=== PATIENT | male | born 1940 | race Caucasian/White ===

== ENCOUNTER 2017-05-26 09:50 | Day surgery (SDC) | payer MEDICARE, BC ==
[2017-05-25 15:38] VITALS: BMI 33.3
--- NOTE | 2017-05-26 15:27 | RAD ---
CERVICAL SPINE RADIOGRAPHS: History: Cervical radiculopathy. FINDINGS: Lateral, flexion, and extension views cervical spine demonstrate mild anterolisthesis of C4 on C5. Th e anterolisthesis is minimally increased on the flexion view, increasing from approximately 1.4 mm to approximately 2.8 mm. There is significant disc space height loss with extensive anterior osteophyte s of the C5-6 level which is unchanged on flexion and extension views. IMPRESSION: Mild increasing anterolisthesis of C4 on C5 on flexion view. POS: FATIMAH
--- NOTE | 2017-05-26 15:43 | MRI ---
MRI CERVICAL SPINE: HISTORY: Cervical radiculopathy, M54.12. FINDINGS: Multiplanar, multisequence noncontrast-enhanced MRI images cervical spine obtained. Images demonstrate no evidence of spinal cord masses or lesions. C1-2: Unremarkable. C2-3: Unremarkable. C3-4: There is moderate bilateral C3-4 neural foraminal narrowing due to facet hypertrophic changes. The central canal is patent. C4-5: There is mild anterolisthesis of C4 and C5. There is a broad-based disk-osteophyte complex ce ntrally compressing the thecal sac resulting in mild central spinal stenosis. The right neural jennifer en is patent. The left demonstrates mild narrowing due to facet hypertrophic changes. C5-6: There is disk space height loss. Broad-based disk-osteophyte complex is seen centrally. Ther e is a left-sided moderate degree of C5-6 neural foraminal narrowing due to uncovertebral osteophyte hypertrophy. Mild right-sided neural foraminal narrowing is seen due to uncovertebral osteophyte hyp ertrophy. C6-7: There is a broad-based disk-osteophyte complex centrally resulting in mild central stenosis. Moderate to severe right C6-7 neural foraminal narrowing is seen due to uncovertebral osteophyte hype rtrophy. The left neural foramen is patent. C7-T1: Unremarkable. IMPRESSION: Midcervical including C3-4, C4-5, C5-6, and C6-7 multilevel disk-osteophyte complexes and neural fora barbara narrowing as described above. No significant evidence of cord compression is seen. POS: NANCY
== END 2017-05-26 15:34 | disposition home or self-care (01) ==
LOC: SDC/OP 09:50 → EDSTATUS 12:00 → SDC/OP 15:34
PROVIDERS: ATTEND Neurological Surgery
DX: M54.12 Radiculopathy, cervical region (principal); I25.10 Atherosclerotic heart disease of native coronary artery without angina pectoris; K21.9 Gastro-esophageal reflux disease without esophagitis; M19.90 Unspecified osteoarthritis, unspecified site; F32.9 Major depressive disorder, single episode, unspecified; D64.9 Anemia, unspecified; I25.2 Old myocardial infarction; I10 Essential (primary) hypertension; N40.0 Benign prostatic hyperplasia without lower urinary tract symptoms; G47.33 Obstructive sleep apnea (adult) (pediatric); E66.9 Obesity, unspecified; Z68.33 Body mass index [BMI] 33.0-33.9, adult; Z79.01 Long term (current) use of anticoagulants; Z79.51 Long term (current) use of inhaled steroids; Z79.899 Other long term (current) drug therapy; Z88.0 Allergy status to penicillin; Z88.7 Allergy status to serum and vaccine; Z98.1 Arthrodesis status; Z98.61 Coronary angioplasty status; Z95.1 Presence of aortocoronary bypass graft; Z90.49 Acquired absence of other specified parts of digestive tract; Z90.89 Acquired absence of other organs
CPT/HCPCS: 72040; 72141

== ENCOUNTER 2019-01-17 13:08 | Outpatient (CLI) | payer MEDICARE, BC ==
--- NOTE | 2019-01-17 15:28 | RAD ---
CERVICAL SPINE THREE VIEWS: INDICATIONS: Follow up surgery. COMPARISON: Prior exam dated 06/01/2017. FINDINGS: Since the comparison study, there has been interval performance of an ACDF, spanning C4 through C7. The prevertebral soft tissues demonstrate mild thickening, likely postoperative in nature. There is improved alignment of the cervical spine with less anterior translation of C4 on C5. Intervertebral cages are at C4-C5, C5-C6, and C6-C7. The lung apices are clear. IMPRESSION: 1. Interval anterior cervical diskectomy and fusion of C4, with improved cervical alignment at C4-C5 . Instrumentation projects in the expected position without gross evidence of complication. 2. Mild prevertebral soft tissue swelling is likely postoperative in nature. POS: CET
== END 2019-01-17 13:09 | disposition home or self-care (01) ==
LOC: TBSIIMAG 13:08
PROVIDERS: ATTEND Neurological Surgery
DX: M47.12 Other spondylosis with myelopathy, cervical region (principal); M47.22 Other spondylosis with radiculopathy, cervical region; M48.02 Spinal stenosis, cervical region; M79.89 Other specified soft tissue disorders; Z98.1 Arthrodesis status
CPT/HCPCS: 72040

== ENCOUNTER 2019-05-16 11:36 | Outpatient (CLI) | payer MEDICARE, BC ==
--- NOTE | 2019-05-16 12:36 | RAD ---
FOUR VIEWS LUMBAR SPINE: HISTORY: Chronic low back pain. Patient fell 9 months ago. Previous surgery in 2009. FINDINGS: Five lumbar-type vertebrae. There are bilateral transpedicular screws at L4 and L5 without perihardwa re lucency. There is no spondylolisthesis in the neutral position. No abnormal motion upon extension or flexion. Uncomplicated disc prosthesis at the L4-L5 level. Atherosclerosis of the aorta is noted. Revised bony pelvis and sacrum are intact. IMPRESSION: Uncomplicated lumbar fusion at L4-L5. Transcribed Date/Time: 05/16/2019 12:52 PM
== END 2019-05-16 11:37 | disposition home or self-care (01) ==
LOC: SCSRAD 11:36
PROVIDERS: ATTEND Neurological Surgery
DX: M54.16 Radiculopathy, lumbar region (principal); Z98.1 Arthrodesis status
CPT/HCPCS: 72110

== ENCOUNTER 2019-07-04 09:03 | Day surgery (SDC) | payer MEDICARE, BC ==
[2019-07-01 11:44] VITALS: BMI 30.7
[2019-07-04 11:10] LABS: Anion Gap 16 mmol/L (10-20); BUN (Urea Nitrogen) 8 mg/dL (8.4-25.7); Calc. Creatinine Clearance 92 mL/min (70-130); Calcium 8.7 mg/dL (7.8-10.44); Carbon Dioxide 28 mmol/L (23-31); Chloride 101 mmol/L (98-107); Estimated GFR-MDRD 79; Glucose 94 mg/dL (83-110); Potassium 4.5 mmol/L (3.5-5.1); Sodium 140 mmol/L (136-145)
[2019-07-04 11:29] LABS: #Eosinphils 0.2 thou/uL (0.0-0.7); #Lymphocytes 1.3 thou/uL (1.20-3.40); #Monocytes 0.4 thou/uL (0.11-0.59); #Neutrophils 1.8 thou/uL (1.40-6.50); %Basophils 1.1 % (0.0-1.0); %Eosinophils 5.6 % (0.0-10.0); %Lymphocytes 34.8 % (21.0-51.0); %Monocytes 10.6 % (0.0-10.0); %Neutrophils 47.9 % (42.0-75.0); Hemoglobin 12.9 g/dL (14.0-18.0); Mean Corpuscular HGB CONC 31.6 g/dL (32.0-36.0); Mean Corpuscular Hemoglobin 25.5 pg (27.0-31.0); Mean Corpuscular Volume 80.5 fL (78.0-98.0); Mean Platelet Volume 9.3 fL (7.4-10.4); Platelet Count 82 thou/uL (130-400); Platelet Morphology Comment Appears Decreased; RBC Distribution Width 20.6 % (11.5-14.5); RBC Morphology Normal; Red Blood Cell (RBC) Count 5.05 mill/uL (4.70-6.10); White Blood Cell (WBC) Count 3.8 thou/uL (4.8-10.8)
--- NOTE | 2019-07-04 14:46 | CT ---
CT lumbar spine with contrast: (CT lumbar myelogram) DATE: 07/04/2019 HISTORY: 78-year-old male with low back pain and lumbar radiculopathy. COMPARISON: Noncontrast CT 12/26/2013. MRI 05/25/2015. FINDINGS: 5 lumbar-type vertebrae. No significant spondylolisthesis and no spondylolysis. T12-L1: Essentially normal. L1-2: Interval development of mild broad, shallow depression of superior endplate of L2 since the neo or studies. Exact age unknown. No disc space narrowing. Calcification within the disc space again noted. Minimal disc bulge. No high-grade central or high-grade neural foraminal stenosis. Conus medul cr terminates at upper L2. L2-3: Disc space maintained. No central stenosis. No high-grade neural foraminal stenosis. L3-4: Disc space maintained. Diffuse disc bulge. Mild to moderate ligamentum flavum thickening. Mild bilateral facet DJD. Mild to moderate bilateral neural foraminal stenosis. Mild central spinal canal stenosis. Mild to moderate thecal sac stenosis. No significant interval change. L4-5: Moderately narrowed intervertebral disc space contains multiple metallic markers for interbody cage. No osseous bridges between the endplates across the disc space. Bilateral pedicle screws at L4 and L5, with no signs of hardware loosening and no malpositioning. Wide midline decompressive lami nectomy defect. Generous caliber of spinal canal and thecal sac. Ill-defined 1 cm somewhat faint filling defect at left anterior corner of thecal sac. Uncertain whether this represents artifact (bec ause it is only visualized on one image axial slice 70 of 114, series 2), extruded disc material, postsurgical scar, or hematoma. Moderate bilateral neural foraminal stenosis. L5-S1: Disc space maintained. Minimal disc bulge. No central stenosis. Mild bilateral neural foramina l stenosis. IMPRESSION: 1. Status post midline laminectomy and posterior lumbar interbody fusion, with bilateral pedicle scre ws, at L4-5. 2. No ankylosis between the endplates at L4-5. 3. Filling defect in the left anterior corner of the L4-5 spinal canal. Exact etiology uncertain. See above comments. 4. No high-grade central spinal canal stenosis or severe neural foraminal stenosis at any level.
--- NOTE | 2019-07-04 14:50 | CT ---
CT-guided lumbar myelogram: DATE: 07/04/2019 HISTORY: 78-year-old male with low back pain and lumbar radiculopathy. TECHNIQUE: Signed informed consent obtained prior to sedation. Procedure performed with anesthesiology service b ecause of extreme claustrophobia, according to the patient. Procedure performed under step CT guidance. Patient placed prone on CT table. Skin of low back prepped and draped in usual sterile fash ion. 25-gauge needle used to apply buffered lidocaine. 22-gauge spinal needle advanced from left paramedian sublaminar approach at L1-2 level (after review of prior MRI to ascertain that conus medul cr tip was at this level) incrementally into spinal canal and thecal sac. Clear CSF return. 11 mL Isovue [id number] injected intrathecally. Spinal needle removed. No complications. IMPRESSION: 1. Successful CT-guided lumbar myelogram. 2. See separate report of CT lumbar myelogram.
--- NOTE | 2019-07-04 17:09 | EKG ---
Test Reason : PREOP Blood Pressure : / mmHG Vent. Rate : 075 BPM Atrial Rate : 075 BPM P-R Int : 184 ms QRS Dur : 100 ms QT Int : 434 ms P-R-T Axes : 054 082 043 degrees QTc Int : 484 ms Normal sinus rhythm Prolonged QT Abnormal ECG When compared with ECG of 15-OCT-2013 12:52, Premature atrial complexes are no longer Present Confirmed by DR. Arash HUGO ([id number]) on 07/04/2019 5:08:54 PM Referred By: GENESIS Confirmed By:DR. Arash HUGO
== END 2019-07-04 14:00 | disposition home or self-care (01) ==
LOC: RAD 09:03
PROVIDERS: ATTEND Nurse Practitioner Family
PROC: B02B1ZZ Computerized Tomography (CT Scan) of Spinal Cord using Low Osmolar Contrast (ICD-10-PCS; principal; 2019-07-04)
DX: M47.26 Other spondylosis with radiculopathy, lumbar region (principal); G47.33 Obstructive sleep apnea (adult) (pediatric); E78.5 Hyperlipidemia, unspecified; I10 Essential (primary) hypertension; I25.2 Old myocardial infarction; I25.10 Atherosclerotic heart disease of native coronary artery without angina pectoris; K21.9 Gastro-esophageal reflux disease without esophagitis; Z87.891 Personal history of nicotine dependence; Z79.01 Long term (current) use of anticoagulants; Z79.899 Other long term (current) drug therapy; Z88.0 Allergy status to penicillin; Z88.7 Allergy status to serum and vaccine; Z95.1 Presence of aortocoronary bypass graft; Z98.1 Arthrodesis status
CPT/HCPCS: 36415; 72132; 77002; 80048; 85025; 93005; 93010

== ENCOUNTER 2020-03-22 07:40 | Outpatient (CLI) | payer MEDICARE, BC, OTHER ==
[2020-03-23 12:45] LABS: SARS-CoV-2 MS2 Positive; SARS-CoV-2 N Gene Negative; SARS-CoV-2 S Gene Negative; SARS-CoV-2 by NAA Not Detected (NotDetected); SARS-CoV-2 orf1ab Negative
== END 2020-03-22 07:41 | disposition home or self-care (01) ==
LOC: LABBT 07:40
PROVIDERS: ATTEND Specialist
DX: M96.1 Postlaminectomy syndrome, not elsewhere classified (principal); M54.16 Radiculopathy, lumbar region; G89.4 Chronic pain syndrome; Z20.828 Contact with and (suspected) exposure to other viral communicable diseases
CPT/HCPCS: 87635; U0003

== ENCOUNTER 2020-03-26 10:27 | Day surgery (SDC) | payer MEDICARE, BC ==
[2020-03-23 10:02] VITALS: BMI 29.2
[2020-03-26] MEDS ORDERED: Vancomycin 1 GM/200 ML BAG ONE (11:10)
[2020-03-26] MEDS ORDERED: Bupivacaine PF 0.5% 30 ML VIAL ONE (11:38)
[2020-03-26] MEDS ORDERED: Lidocaine 1% w/Epinephrine 1:100K 20 ML VIAL ONE (11:38)
[2020-03-26] MEDS ORDERED: Propofol 1,000 MG/100 ML VIAL IV ONE (11:55)
[2020-03-26] MEDS ORDERED: Fentanyl 100 MCG/2 ML VIAL ONE ×2 (11:55→14:50)
[2020-03-26] MEDS ORDERED: Rocuronium Bromide 10 MG/ML (10ML VIAL) ONE (12:19)
[2020-03-26] MEDS ORDERED: Lidocaine 1% PF 5 ML VIAL ONE (12:19)
[2020-03-26] MEDS ORDERED: PROPOFOL 200 MG/20 ML VIAL ONE (12:19)
[2020-03-26] MEDS ORDERED: SUGAMMADEX SODIUM 200 MG/2 ML VIAL ONE (14:14)
--- NOTE | 2020-03-26 15:09 | RAD ---
RADIOGRAPH THORACIC SPINE 1 VIEW: Date: 03/26/2020 HISTORY: 79-year-old male with chronic mid back pain. FINDINGS: Single small field of view frontal image demonstrates double dorsal column stimulator leads overlying the midline of the thoracic spine with distal tip of one of the leads at what is labeled at the T7-8 level and the other at the T8-9 level. IMPRESSION: Dorsal column spinal column stimulator leads in the lower to mid thoracic spine. POS: AH
[2020-03-26] MEDS ORDERED: HYDROcodone/Acetaminophen 5/325 mg Tablet ONE (15:57)
--- NOTE | 2020-03-26 19:00 | OP ---
DATE OF PROCEDURE: 03/26/2020 PREOPERATIVE DIAGNOSES: 1. Post-laminectomy syndrome. 2. Chronic pain syndrome. 3. Lumbar radiculopathy. POSTOPERATIVE DIAGNOSES: 1. Post-laminectomy syndrome. 2. Chronic pain syndrome. 3. Lumbar radiculopathy. PROCEDURES PERFORMED: 1. Spinal cord stimulator generator implant. 2. Spinal cord stimulator lead implant x2. These are 8-contact Medtronic leads x2. SPECIMENS REMOVED: None. ESTIMATED BLOOD LOSS: 5 mL. DESCRIPTION OF PROCEDURE: The patient was taken to the procedure room and placed under anesthesia. The patient was moved to a prone position on the Tu table. A time-out was performed. The back was prepped with DuraPrep, and sterile drapes were applied. Using fluoroscopy, we located the interspace of T12-L1. We anesthetized the skin and made a vertical incision and blunt dissected this down to fascia. We then inserted a 14-gauge supplied Touhy needle in a paramedian technique and engaged it in the interspinous ligament. We used loss of resistance to air to achieve access to the epidural space. Aspiration was negative for heme or CSF. We threaded the 8-contact Medtronic lead up the dorsal midline epidural space up to the bottom of T7. We then performed the exact same procedure on the right side, which is the contralateral side, achieving access at the same interspace and then threading the lead up to the bottom of T8 on the right side. Therefore, the midline lead is at the bottom of T7 and the right-sided lead is at the bottom of T8. The pictures of the trial were used as guidance and we placed the leads in the exact same position as the trial. Therefore, we felt confident that the patient would feel paresthesia in all pain areas. Given the patient's history of PTSD, we chose not to awaken the patient during the procedure to test the leads. The needles were removed, taking care not to move the leads. The stylet was removed from the leads. Anchors were placed over the leads and these were sutured down to the fascia with 2-0 silk sutures x2 each. We anesthetized the skin of the upper left buttock in a horizontal fashion. We used a 10 blade scalpel to make an incision and blunt dissected this down to Linda fascia. We then blunt dissected inferior and superior to create a pocket. We used a tunneling device to make a tunnel between the two pockets, and threaded the lead through the tunnel, brought it back to the battery pocket, connected it to a battery, torqued the leads down to attach them to the battery, and then tested impedances, which were all good. The battery was flipped inside the pocket with ease. The fascial layers were approximated using 2-0 Vicryl sutures in horizontal mattress and simple interrupted technique. We used a 3-0 Rapide Vicryl to approximate the skin layer and the subcuticular layer. Once this was approximated, we used Dermabond as an occlusive dressing. Once this was dry, we did use three Steri-Strips on the vertical anchor incision as there was more tension at this level. Sterile dressing was placed over this with Medipore tape. The patient was then taken to Day Stay under stable condition. Job ID: [id number]
== END 2020-03-26 16:30 | disposition home or self-care (01) ==
LOC: SDC 10:27
PROVIDERS: ATTEND Specialist
PROC: 0JH70DZ Insertion of Multiple Array Stimulator Generator into Back Subcutaneous Tissue and Fascia, Open Approach (ICD-10-PCS; principal; 2020-03-26)
PROC: 00HU3MZ Insertion of Neurostimulator Lead into Spinal Canal, Percutaneous Approach (ICD-10-PCS; 2020-03-26)
DX: M96.1 Postlaminectomy syndrome, not elsewhere classified (principal); G89.4 Chronic pain syndrome; M47.26 Other spondylosis with radiculopathy, lumbar region; M46.1 Sacroiliitis, not elsewhere classified; M47.817 Spondylosis without myelopathy or radiculopathy, lumbosacral region; F43.10 Post-traumatic stress disorder, unspecified; G47.33 Obstructive sleep apnea (adult) (pediatric); E78.5 Hyperlipidemia, unspecified; I25.2 Old myocardial infarction; I25.10 Atherosclerotic heart disease of native coronary artery without angina pectoris; K21.9 Gastro-esophageal reflux disease without esophagitis; M19.90 Unspecified osteoarthritis, unspecified site; F41.9 Anxiety disorder, unspecified; I11.0 Hypertensive heart disease with heart failure; I50.9 Heart failure, unspecified; I48.91 Unspecified atrial fibrillation; Z87.891 Personal history of nicotine dependence; Z79.01 Long term (current) use of anticoagulants; Z79.891 Long term (current) use of opiate analgesic; Z79.899 Other long term (current) drug therapy; Z88.0 Allergy status to penicillin; Z88.7 Allergy status to serum and vaccine; Z95.1 Presence of aortocoronary bypass graft; Z98.1 Arthrodesis status
CPT/HCPCS: 72020; 76000; C1778; C1787; J2704; J3010; J3370; L8679; L8689; S0020

== ENCOUNTER 2021-02-18 11:52 | Outpatient (CLI) | payer MEDICARE, BC ==
[2021-02-19 07:59] LABS: SARS-CoV-2 PCR by NAA Not Detected (NotDetected)
== END 2021-02-18 11:53 | disposition home or self-care (01) ==
LOC: LABBT 11:52
PROVIDERS: ATTEND Neurological Surgery
DX: Z01.812 Encounter for preprocedural laboratory examination (principal); M54.16 Radiculopathy, lumbar region; Z20.822 Contact with and (suspected) exposure to COVID-19
CPT/HCPCS: U0003; U0005

== ENCOUNTER 2021-02-22 08:56 | Day surgery (SDC) | payer MEDICARE, BC ==
[2021-02-21 10:45] VITALS: BMI 32.1
[2021-02-22] MEDS ORDERED: Iopamidol-M 200 41% 20 ML VIAL ONE (10:35)
[2021-02-22] MEDS ORDERED: Fentanyl 100 MCG/2 ML VIAL ONE (10:51)
[2021-02-22] MEDS ORDERED: Phenylephrine 10 MG/ML VIAL ONE (10:51)
[2021-02-22] MEDS ORDERED: Famotidine/PF 20 mg/2ml Vial ONE (10:51)
[2021-02-22] MEDS ORDERED: Ketamine 50 MG/ML (10ML VIAL) ONE (11:02)
[2021-02-22] MEDS ORDERED: Midazolam HCl 2 mg/2 ml Vial ONE (11:02)
== END 2021-02-22 13:25 | disposition home or self-care (01) ==
LOC: RAD 08:56 → SDC/OP 13:25
PROVIDERS: ATTEND Neurological Surgery
PROC: B02B1ZZ Computerized Tomography (CT Scan) of Spinal Cord using Low Osmolar Contrast (ICD-10-PCS; principal; 2021-02-22)
PROC: 00JU3ZZ Inspection of Spinal Canal, Percutaneous Approach (ICD-10-PCS; 2021-02-22)
DX: M54.16 Radiculopathy, lumbar region (principal); M46.1 Sacroiliitis, not elsewhere classified; M76.31 Iliotibial band syndrome, right leg; M70.61 Trochanteric bursitis, right hip; J44.9 Chronic obstructive pulmonary disease, unspecified; I11.0 Hypertensive heart disease with heart failure; I50.9 Heart failure, unspecified; G47.30 Sleep apnea, unspecified; I48.91 Unspecified atrial fibrillation; K21.9 Gastro-esophageal reflux disease without esophagitis; Z79.01 Long term (current) use of anticoagulants; Z79.899 Other long term (current) drug therapy; Z87.891 Personal history of nicotine dependence; Z88.0 Allergy status to penicillin; Z95.1 Presence of aortocoronary bypass graft; Z98.1 Arthrodesis status
CPT/HCPCS: 62304; 72132; J2250; J2370; J3010; Q9966; S0028

== ENCOUNTER 2021-02-26 14:27 | Outpatient (CLI) | payer MEDICARE, BC ==
[2021-02-26 17:02] LABS: Mean Corpuscular HGB CONC 29.1 g/dL (32.0-36.0); Mean Corpuscular Volume 72.2 fl (81.2-95.1); Mean Platelet Volume 9.6 fl (7.4-10.4); Platelet Count 274 10x3/uL (150-450); RBC Distribution Width 17.3 % (11.5-14.5); Red Blood Cell (RBC) Count 5.72 10x6/uL (4.32-5.72); White Blood Cell (WBC) Count 18.3 10x3/uL (3.5-10.5)
[2021-02-26 17:17] LABS: Prothrombin Time 10.8 sec (9.5-12.1)
[2021-02-26 17:31] LABS: Anion Gap 18 mmol/L (10-20); BUN (Urea Nitrogen) 31 mg/dL (8.4-25.7); Calc. Creatinine Clearance 0 mL/min (70-130); Calcium 10.2 mg/dL (7.8-10.44); Carbon Dioxide 21 mmol/L (23-31); Chloride 103 mmol/L (98-107); Glucose 123 mg/dL (83-110); Potassium 4.4 mmol/L (3.5-5.1); Sodium 138 mmol/L (136-145)
[2021-02-27 07:49] LABS: SARS-CoV-2 PCR by NAA Not Detected (NotDetected)
== END 2021-02-26 14:28 | disposition home or self-care (01) ==
LOC: LABBT 14:27
PROVIDERS: ATTEND Internal Medicine Cardiovascular Disease
DX: Z01.812 Encounter for preprocedural laboratory examination (principal); Z20.822 Contact with and (suspected) exposure to COVID-19
CPT/HCPCS: 80048; 85027; 85610; U0003; U0005

== ENCOUNTER 2021-03-01 05:58 | Day surgery (SDC) | payer MEDICARE, BC ==
[2021-02-28 12:39] VITALS: BMI 33.5
[2021-03-01] MEDS ORDERED: PROPOFOL 20 ML ONE (07:02)
[2021-03-01] MEDS ORDERED: Midazolam HCl 2 mg/2 ml Vial ONE (07:02)
== END 2021-03-01 08:32 | disposition home or self-care (01) ==
LOC: CCL 05:58
PROVIDERS: ATTEND Internal Medicine Cardiovascular Disease
PROC: B246ZZ4 Ultrasonography of Right and Left Heart, Transesophageal (ICD-10-PCS; principal; 2021-03-01)
PROC: B24CZZ4 Ultrasonography of Pericardium, Transesophageal (ICD-10-PCS; 2021-03-01)
PROC: 5A2204Z Restoration of Cardiac Rhythm, Single (ICD-10-PCS; 2021-03-01)
DX: I48.19 Other persistent atrial fibrillation (principal); I48.4 Atypical atrial flutter; G47.33 Obstructive sleep apnea (adult) (pediatric); I25.10 Atherosclerotic heart disease of native coronary artery without angina pectoris; I25.2 Old myocardial infarction; E78.5 Hyperlipidemia, unspecified; I10 Essential (primary) hypertension; K21.9 Gastro-esophageal reflux disease without esophagitis; N40.0 Benign prostatic hyperplasia without lower urinary tract symptoms; J44.9 Chronic obstructive pulmonary disease, unspecified; E03.9 Hypothyroidism, unspecified; G43.709 Chronic migraine without aura, not intractable, without status migrainosus; I73.9 Peripheral vascular disease, unspecified; Z87.891 Personal history of nicotine dependence; Z79.01 Long term (current) use of anticoagulants; Z79.899 Other long term (current) drug therapy; Z95.1 Presence of aortocoronary bypass graft; Z98.1 Arthrodesis status
CPT/HCPCS: 92960; 93005; 93010; 93312; J2250; J2704

== ENCOUNTER 2021-07-16 10:41 | Outpatient (CLI) | payer MEDICARE, BC ==
[2021-07-16 12:38] LABS: Mean Corpuscular HGB CONC 28.8 g/dL (32.0-36.0); Mean Corpuscular Hemoglobin 19.8 pg (27.0-33.0); Mean Corpuscular Volume 68.8 fl (81.2-95.1); Mean Platelet Volume 8.9 fl (7.4-10.4); Platelet Count 244 10x3/uL (150-450); Red Blood Cell (RBC) Count 5.55 10x6/uL (4.32-5.72); White Blood Cell (WBC) Count 6.9 10x3/uL (3.5-10.5)
[2021-07-16 12:57] LABS: Anion Gap 16 mmol/L (10-20); BUN (Urea Nitrogen) 19 mg/dL (8.4-25.7); Calc. Creatinine Clearance 0 mL/min (70-130); Calcium 9.1 mg/dL (7.8-10.44); Carbon Dioxide 21 mmol/L (23-31); Chloride 104 mmol/L (98-107); Glucose 123 mg/dL (83-110); Potassium 4.9 mmol/L (3.5-5.1); Prothrombin Time 11.4 sec (9.5-12.1); Sodium 136 mmol/L (136-145)
[2021-07-16 22:54] LABS: SARS-CoV-2 PCR by NAA Not Detected (NotDetected)
== END 2021-07-16 10:42 | disposition home or self-care (01) ==
LOC: LABBT 10:41
PROVIDERS: ATTEND Internal Medicine Cardiovascular Disease
DX: Z01.812 Encounter for preprocedural laboratory examination (principal); Z20.822 Contact with and (suspected) exposure to COVID-19
CPT/HCPCS: 80048; 85027; 85610; U0003; U0005

== ENCOUNTER 2021-07-19 08:23 | Day surgery (SDC) | payer MEDICARE, BC ==
[2021-07-17 12:11] VITALS: BMI 32.1
[2021-07-19] MEDS ORDERED: PROPOFOL 200 MG/20 ML VIAL ONE (11:30)
[2021-07-19] MEDS ORDERED: Lidocaine 1% PF 5 ML VIAL ONE (11:30)
== END 2021-07-19 13:36 | disposition home or self-care (01) ==
LOC: CCL 08:23
PROVIDERS: ATTEND Internal Medicine Cardiovascular Disease
PROC: 5A2204Z Restoration of Cardiac Rhythm, Single (ICD-10-PCS; principal; 2021-07-19)
DX: I48.19 Other persistent atrial fibrillation (principal); I48.3 Typical atrial flutter; I48.4 Atypical atrial flutter; G47.33 Obstructive sleep apnea (adult) (pediatric); I25.10 Atherosclerotic heart disease of native coronary artery without angina pectoris; I25.2 Old myocardial infarction; I10 Essential (primary) hypertension; J44.9 Chronic obstructive pulmonary disease, unspecified; K21.9 Gastro-esophageal reflux disease without esophagitis; E03.9 Hypothyroidism, unspecified; G43.909 Migraine, unspecified, not intractable, without status migrainosus; N40.0 Benign prostatic hyperplasia without lower urinary tract symptoms; E78.5 Hyperlipidemia, unspecified; Z79.01 Long term (current) use of anticoagulants; Z79.890 Hormone replacement therapy; Z79.899 Other long term (current) drug therapy; Z88.0 Allergy status to penicillin; Z95.1 Presence of aortocoronary bypass graft; D50.9 Iron deficiency anemia, unspecified; Z87.891 Personal history of nicotine dependence
CPT/HCPCS: 92960; 93005; 93010; J2704

== ENCOUNTER 2021-08-21 09:31 | Outpatient (CLI) | payer MEDICARE, BC | END 2021-08-21 09:32 | disposition home or self-care (01) | LOC: BICRAD 09:31 | PROVIDERS: ATTEND Nurse Practitioner Family | DX: M25.551 Pain in right hip (principal); M47.818 Spondylosis without myelopathy or radiculopathy, sacral and sacrococcygeal region; M16.11 Unilateral primary osteoarthritis, right hip | CPT/HCPCS: 72170 ==

== ENCOUNTER 2022-01-08 12:06 | Outpatient (CLI) | payer MEDICARE, BC ==
[2022-01-08 13:54] LABS: Hemoglobin 8.4 g/dL (13.5-17.5); Mean Corpuscular HGB CONC 28.3 g/dL (32.0-36.0); Mean Corpuscular Hemoglobin 20.2 pg (27.0-33.0); Mean Corpuscular Volume 71.6 fl (81.2-95.1); Platelet Count 434 10x3/uL (150-450); Red Blood Cell (RBC) Count 4.15 10x6/uL (4.32-5.72); White Blood Cell (WBC) Count 5.4 10x3/uL (3.5-10.5)
[2022-01-08 14:13] LABS: Anion Gap 20 mmol/L (10-20); BUN (Urea Nitrogen) 22 mg/dL (8.4-25.7); Calc. Creatinine Clearance 0 mL/min (70-130); Calcium 9.1 mg/dL (7.8-10.44); Carbon Dioxide 22 mmol/L (23-31); Chloride 100 mmol/L (98-107); Estimated GFR 50; Glucose 119 mg/dL (83-110); Potassium 4.2 mmol/L (3.5-5.1); Sodium 138 mmol/L (136-145)
== END 2022-01-08 12:07 | disposition home or self-care (01) ==
LOC: LABBT 12:06
PROVIDERS: ATTEND Internal Medicine Cardiovascular Disease
DX: Z01.818 Encounter for other preprocedural examination (principal); Z20.822 Contact with and (suspected) exposure to COVID-19
CPT/HCPCS: 80048; 85027; 87811; 93005; 93010

== ENCOUNTER 2022-01-15 08:37 | Outpatient (CLI) | payer MEDICARE, BC ==
[2022-01-15 09:39] LABS: Hemoglobin 8.7 g/dL (13.5-17.5); Mean Corpuscular HGB CONC 28.2 g/dL (32.0-36.0); Mean Corpuscular Hemoglobin 20.3 pg (27.0-33.0); Mean Corpuscular Volume 72.2 fl (81.2-95.1); Platelet Count 307 10x3/uL (150-450); RBC Distribution Width 20.9 % (11.5-14.5); Red Blood Cell (RBC) Count 4.28 10x6/uL (4.32-5.72); White Blood Cell (WBC) Count 5.1 10x3/uL (3.5-10.5)
[2022-01-15 09:47] LABS: Anion Gap 15 mmol/L (10-20); BUN (Urea Nitrogen) 13 mg/dL (8.4-25.7); Calc. Creatinine Clearance 0 mL/min (70-130); Carbon Dioxide 26 mmol/L (23-31); Chloride 101 mmol/L (98-107); Estimated GFR 53; Glucose 147 mg/dL (83-110); Potassium 3.8 mmol/L (3.5-5.1); Sodium 138 mmol/L (136-145)
== END 2022-01-15 08:38 | disposition home or self-care (01) ==
LOC: LABBT 08:37
PROVIDERS: ATTEND Nurse Anesthetist, Certified Registered
DX: Z01.812 Encounter for preprocedural laboratory examination (principal); Z20.822 Contact with and (suspected) exposure to COVID-19
CPT/HCPCS: 80048; 85027; 87811

== ENCOUNTER 2022-01-17 06:03 | Day surgery (SDC) | payer MEDICARE, BC ==
[2022-01-15 10:36] VITALS: BMI 30.7
[2022-01-17] MEDS ORDERED: Propofol 1,000 MG/100 ML VIAL IV ONE (06:50)
[2022-01-17] MEDS ORDERED: fentaNYL Citrate/PF 100 MCG/2 ML SYRINGE ONE (06:50)
[2022-01-17] MEDS ORDERED: Lidocaine 1% w/Epinephrine 1:100K 20 ML VIAL ONE (07:13)
[2022-01-17] MEDS ORDERED: Bupivacaine PF 0.5% 30 ML VIAL ONE (07:13)
[2022-01-17] MEDS ORDERED: Midazolam HCl 2 mg/2 ml Vial ONE (07:50)
[2022-01-17] MEDS ORDERED: Lidocaine 1% PF 5 ML VIAL ONE (08:00)
[2022-01-17] MEDS ORDERED: PROPOFOL 200 MG/20 ML VIAL ONE (08:00)
[2022-01-17] MEDS ORDERED: Diazepam 10 MG/2 ML SYRINGE IVP SCH (09:30)
[2022-01-17] MEDS ORDERED: HYDROcodone/Acetaminophen 5/325 mg Tablet ONE (09:59)
== END 2022-01-17 10:42 | disposition home or self-care (01) ==
LOC: SDC 06:03
PROVIDERS: ATTEND Specialist
PROC: 0JH70BZ Insertion of Single Array Stimulator Generator into Back Subcutaneous Tissue and Fascia, Open Approach (ICD-10-PCS; principal; 2022-01-17)
PROC: 00HU3MZ Insertion of Neurostimulator Lead into Spinal Canal, Percutaneous Approach (ICD-10-PCS; 2022-01-17)
DX: G89.4 Chronic pain syndrome (principal); M96.1 Postlaminectomy syndrome, not elsewhere classified; R78.81 Bacteremia; M46.1 Sacroiliitis, not elsewhere classified; M54.16 Radiculopathy, lumbar region; M76.31 Iliotibial band syndrome, right leg; M70.61 Trochanteric bursitis, right hip; I11.0 Hypertensive heart disease with heart failure; I50.9 Heart failure, unspecified; J44.9 Chronic obstructive pulmonary disease, unspecified; I48.91 Unspecified atrial fibrillation; I10 Essential (primary) hypertension; Z79.01 Long term (current) use of anticoagulants; Z79.890 Hormone replacement therapy; Z79.899 Other long term (current) drug therapy; Z88.0 Allergy status to penicillin; Z87.891 Personal history of nicotine dependence; Z95.1 Presence of aortocoronary bypass graft
CPT/HCPCS: J2250; J2704; J3360; S0020

== ENCOUNTER 2022-02-06 10:04 | Outpatient (CLI) | payer MEDICARE, BC | END 2022-02-06 10:05 | disposition home or self-care (01) | LOC: LABBT 10:04 | PROVIDERS: ATTEND Internal Medicine Cardiovascular Disease | DX: Z53.9 Procedure and treatment not carried out, unspecified reason (principal) | CPT/HCPCS: 80048; 85027; 85610; 86850; 86900; 86901; 87811 ==

== ENCOUNTER 2022-02-11 08:28 | Day surgery (SDC) | payer MEDICARE, BC ==
[2022-02-06 11:03] LABS: Hemoglobin 8.5 g/dL (13.5-17.5); Mean Corpuscular HGB CONC 28.9 g/dL (32.0-36.0); Mean Corpuscular Hemoglobin 20.3 pg (27.0-33.0); Mean Corpuscular Volume 70.3 fl (81.2-95.1); Mean Platelet Volume 8.8 fl (7.4-10.4); Platelet Count 313 10x3/uL (150-450); RBC Distribution Width 19.6 % (11.5-14.5); Red Blood Cell (RBC) Count 4.18 10x6/uL (4.32-5.72); White Blood Cell (WBC) Count 11.4 10x3/uL (3.5-10.5)
[2022-02-06 11:18] LABS: Prothrombin Time 11.1 sec (9.5-12.1)
[2022-02-06 11:33] LABS: Anion Gap 16 mmol/L (10-20); BUN (Urea Nitrogen) 29 mg/dL (8.4-25.7); Calc. Creatinine Clearance 0 mL/min (70-130); Calcium 9.3 mg/dL (7.8-10.44); Carbon Dioxide 26 mmol/L (23-31); Chloride 99 mmol/L (98-107); Estimated GFR 61; Glucose 100 mg/dL (83-110); Potassium 3.5 mmol/L (3.5-5.1); Sodium 137 mmol/L (136-145)
[2022-02-10 09:28] VITALS: BMI 30.7
[2022-02-11] MEDS ORDERED: Vancomycin (BATCH) 1.5 GRAM/300 ML BAG ONE (08:55)
== END 2022-02-11 11:10 | disposition home or self-care (01) ==
LOC: SDC 08:28
PROVIDERS: ATTEND Internal Medicine Cardiovascular Disease
DX: I11.0 Hypertensive heart disease with heart failure (principal); I50.22 Chronic systolic (congestive) heart failure; I48.21 Permanent atrial fibrillation; I48.3 Typical atrial flutter; I48.4 Atypical atrial flutter; G47.33 Obstructive sleep apnea (adult) (pediatric); E78.5 Hyperlipidemia, unspecified; I25.2 Old myocardial infarction; I25.10 Atherosclerotic heart disease of native coronary artery without angina pectoris; K21.9 Gastro-esophageal reflux disease without esophagitis; J44.9 Chronic obstructive pulmonary disease, unspecified; E03.9 Hypothyroidism, unspecified; G43.709 Chronic migraine without aura, not intractable, without status migrainosus; I42.8 Other cardiomyopathies; I25.5 Ischemic cardiomyopathy; Z53.8 Procedure and treatment not carried out for other reasons; Z87.891 Personal history of nicotine dependence; Z79.01 Long term (current) use of anticoagulants; Z79.890 Hormone replacement therapy; Z79.899 Other long term (current) drug therapy; Z88.0 Allergy status to penicillin; Z95.1 Presence of aortocoronary bypass graft; Z20.822 Contact with and (suspected) exposure to COVID-19
CPT/HCPCS: 80048; 85027; 85610; 86850; 86900; 86901; 87811; J3370

== ENCOUNTER 2022-02-12 14:41 | Outpatient (CLI) | payer MEDICARE, BC ==
[2022-02-12 16:05] LABS: INR-International Normal Ratio 1.1; Prothrombin Time 11.6 sec (9.5-12.1)
[2022-02-12 16:09] LABS: Anion Gap 17 mmol/L (10-20); BUN (Urea Nitrogen) 28 mg/dL (8.4-25.7); Calc. Creatinine Clearance 0 mL/min (70-130); Calcium 8.8 mg/dL (7.8-10.44); Carbon Dioxide 28 mmol/L (23-31); Chloride 96 mmol/L (98-107); Estimated GFR 58; Glucose 134 mg/dL (83-110); Potassium 3.6 mmol/L (3.5-5.1); Sodium 137 mmol/L (136-145)
[2022-02-12 16:21] LABS: Hemoglobin 8.7 g/dL (13.5-17.5); Mean Corpuscular HGB CONC 28.5 g/dL (32.0-36.0); Mean Corpuscular Hemoglobin 19.9 pg (27.0-33.0); Mean Corpuscular Volume 69.8 fl (81.2-95.1); Mean Platelet Volume 9.6 fl (7.4-10.4); Platelet Count 232 10x3/uL (150-450); RBC Distribution Width 19.6 % (11.5-14.5); Red Blood Cell (RBC) Count 4.37 10x6/uL (4.32-5.72); White Blood Cell (WBC) Count 11.1 10x3/uL (3.5-10.5)
== END 2022-02-12 14:42 | disposition home or self-care (01) ==
LOC: LABBT 14:41
PROVIDERS: ATTEND Internal Medicine Cardiovascular Disease
DX: Z01.812 Encounter for preprocedural laboratory examination (principal); I50.9 Heart failure, unspecified; I44.2 Atrioventricular block, complete; Z20.822 Contact with and (suspected) exposure to COVID-19
CPT/HCPCS: 80048; 85027; 85610; 86850; 86900; 86901; 87811

== ENCOUNTER 2022-02-13 08:15 | Observation (INO) | payer MEDICARE, BC ==
[2022-02-13] MEDS ORDERED: Vancomycin (BATCH) 1.5 GRAM/300 ML BAG ONE (08:18)
[2022-02-13] MEDS ORDERED: Midazolam HCl 2 mg/2 ml Vial ONE (10:08)
[2022-02-13] MEDS ORDERED: Lidocaine 1% PF 5 ML VIAL ONE ×2 (10:32→12:02)
[2022-02-13] MEDS ORDERED: Clindamycin/D5W 900 mg/50 ml Premix Bag ONE (10:32)
[2022-02-13] MEDS ORDERED: Gentamicin 80 MG/2 ML VIAL ONE (11:06)
[2022-02-13] MEDS ORDERED: Gentamicin 80 MG/100 ML BAG ONE ×2 (11:07→13:41)
[2022-02-13] MEDS ORDERED: Ondansetron PF 4 MG/2 ML Vial ONE ×2 (11:30→12:10)
[2022-02-13] MEDS ORDERED: Phenylephrine 10 MG/ML VIAL ONE ×2 (11:30→12:13)
[2022-02-13] MEDS ORDERED: ePHEDrine 50 MG/ML VIAL ONE (11:30)
[2022-02-13] MEDS ORDERED: Dexamethasone 20 MG/5 ML VIAL ONE (11:30)
[2022-02-13] MEDS ORDERED: PROPOFOL 200 MG/20 ML VIAL ONE (11:30)
[2022-02-13] MEDS ORDERED: Fentanyl 100 MCG/2 ML VIAL ONE (11:55)
[2022-02-13] MEDS ORDERED: PROPOFOL 20 ML ONE (12:03)
[2022-02-13] MEDS ORDERED: Dexamethasone 4 mg/ml Vial ONE (12:10)
[2022-02-13] MEDS ORDERED: Iopamidol 370 76% 50 ML VIAL FS ONE (13:57)
[2022-02-13] MEDS ORDERED: Gentamicin 80 MG/50 ML BAG ONE (14:00)
[2022-02-13] MEDS ORDERED: Acetaminophen/Codeine 30-300mg Tablet PO PRN (14:24)
[2022-02-13] MEDS ORDERED: Albuterol Sulfate 1.25 MG/3 ML NEB INH PRN (14:25)
[2022-02-13] MEDS ORDERED: HYDROcodone/Acetaminophen 10/325 mg Tablet PO PRN (14:37)
[2022-02-13] MEDS ORDERED: hydrOXYzine 25 MG TAB PO PRN (14:38)
[2022-02-13] MEDS ORDERED: Acetaminophen 500 MG TAB PO PRN (14:48)
[2022-02-13] MEDS ORDERED: fentaNYL Citrate/PF 100 MCG/2 ML SYRINGE ONE (16:26)
[2022-02-13 18:43] VITALS: BMI 33.7
[2022-02-13] MEDS ORDERED: Non-Formulary Medication 1 EACH PO PRN (18:48)
[2022-02-13] MEDS ORDERED: Ondansetron HCl/PF 4 MG/2 ML Vial IVP PRN (19:00)
[2022-02-13] MEDS ORDERED: Promethazine HCl 25 MG/ML VIAL IM/IV PRN (19:00)
[2022-02-13] MEDS: Mometasone 200 MCG/Formoterol 5 MCG 120 PUFF INHALER INH SCH (20:04)
[2022-02-13] MEDS ORDERED: Carvedilol 3.125 MG TAB PO SCH (21:00)
[2022-02-13] MEDS ORDERED: Mirtazapine 15 MG TAB PO SCH (21:00)
[2022-02-14] MEDS ORDERED: LEVOTHYROXINE 137 MCG TAB PO SCH (06:00)
[2022-02-14] MEDS ORDERED: Levothyroxine Sodium 25 MCG TAB PO SCH (06:00)
[2022-02-14] MEDS ORDERED: Levothyroxine Sodium 112 MCG TAB PO SCH (06:00)
[2022-02-14] MEDS: Mometasone 200 MCG/Formoterol 5 MCG 120 PUFF INHALER INH SCH (06:47)
[2022-02-14] MEDS ORDERED: DAPTOmycin 500 MG in Sodium Chloride 0.9% 100 ML IVPB SCH (07:00)
[2022-02-14] MEDS ORDERED: Ferrous Sulfate 325 MG TAB PO SCH (08:00)
[2022-02-14] MEDS ORDERED: Metolazone 2.5 MG TAB PO SCH (08:30)
[2022-02-14 08:47] VITALS: BP 145/66; TEMP 97.9
[2022-02-14] MEDS ORDERED: Cyanocobalamin (Vitamin B-12) 1,000 MCG TAB PO SCH (09:00)
[2022-02-14] MEDS ORDERED: Furosemide 40 MG TAB PO SCH (09:00)
[2022-02-14] MEDS ORDERED: Magnesium Oxide 400 MG TAB PO SCH (09:00)
[2022-02-14] MEDS ORDERED: Venlafaxine HCl XR 150 MG CAP PO SCH (09:00)
[2022-02-14] MEDS ORDERED: Thiamine 100 MG TAB PO SCH (09:00)
[2022-02-14] MEDS ORDERED: Finasteride 5 MG TAB PO SCH (09:00)
[2022-02-14] MEDS ORDERED: Tamsulosin HCl 0.4 MG CAP PO SCH (09:00)
[2022-02-14] MEDS ORDERED: Folic Acid 1 MG TAB PO SCH (09:00)
== END 2022-02-14 09:50 | disposition home or self-care (01) ==
LOC: SDC 08:15 → 2SW 11:18
PROVIDERS: ADMIT Internal Medicine Cardiovascular Disease; ATTEND Internal Medicine Cardiovascular Disease
PROC: 0JPT0PZ Removal of Cardiac Rhythm Related Device from Trunk Subcutaneous Tissue and Fascia, Open Approach (ICD-10-PCS; principal; 2022-02-13)
PROC: 0JH609Z Insertion of Cardiac Resynchronization Defibrillator Pulse Generator into Chest Subcutaneous Tissue and Fascia, Open Approach (ICD-10-PCS; 2022-02-13)
PROC: 02PA3MZ Removal of Cardiac Lead from Heart, Percutaneous Approach (ICD-10-PCS; 2022-02-13)
PROC: 02HL3KZ Insertion of Defibrillator Lead into Left Ventricle, Percutaneous Approach (ICD-10-PCS; 2022-02-13)
PROC: 02HK3KZ Insertion of Defibrillator Lead into Right Ventricle, Percutaneous Approach (ICD-10-PCS; 2022-02-13)
PROC: 3E0132A Introduction of Anti-Infective Envelope into Subcutaneous Tissue, Percutaneous Approach (ICD-10-PCS; 2022-02-13)
DX: I11.0 Hypertensive heart disease with heart failure (principal); I50.22 Chronic systolic (congestive) heart failure; I48.21 Permanent atrial fibrillation; I44.2 Atrioventricular block, complete; A41.9 Sepsis, unspecified organism; K02.9 Dental caries, unspecified; D50.9 Iron deficiency anemia, unspecified; G47.33 Obstructive sleep apnea (adult) (pediatric); E78.5 Hyperlipidemia, unspecified; I25.2 Old myocardial infarction; I25.10 Atherosclerotic heart disease of native coronary artery without angina pectoris; K21.9 Gastro-esophageal reflux disease without esophagitis; N40.0 Benign prostatic hyperplasia without lower urinary tract symptoms; M19.90 Unspecified osteoarthritis, unspecified site; G89.29 Other chronic pain; M54.9 Dorsalgia, unspecified; I48.3 Typical atrial flutter; I48.4 Atypical atrial flutter; J44.9 Chronic obstructive pulmonary disease, unspecified; E03.9 Hypothyroidism, unspecified; Z87.891 Personal history of nicotine dependence; Z79.01 Long term (current) use of anticoagulants; Z79.2 Long term (current) use of antibiotics; Z79.890 Hormone replacement therapy; Z79.899 Other long term (current) drug therapy; Z88.0 Allergy status to penicillin; Z95.1 Presence of aortocoronary bypass graft; Z98.1 Arthrodesis status
CPT/HCPCS: 33207; 33225; 33233; 33235; 71045; 93005; 94640 ×2; C1769; C1894; C1898; C1900; C2621; J3370; J1100; J1580; J2250; J2370; J2405; J2704; J3010; J3490; Q9967

== ENCOUNTER 2022-04-22 14:53 | Emergency (ER) | payer MEDICARE, BC ==
[2022-04-22] MEDS ORDERED: HYDROcodone/Acetaminophen 5/325 mg Tablet ONE (15:44)
[2022-04-22] MEDS ORDERED: Ketorolac Tromethamine 30 MG/ML VIAL ONE (15:44)
== END 2022-04-22 17:20 | disposition home or self-care (01) ==
LOC: ERS 14:53
DX: M54.42 Lumbago with sciatica, left side (principal); M54.41 Lumbago with sciatica, right side; G89.29 Other chronic pain; I25.10 Atherosclerotic heart disease of native coronary artery without angina pectoris; I11.0 Hypertensive heart disease with heart failure; I50.9 Heart failure, unspecified; I25.2 Old myocardial infarction; Z79.899 Other long term (current) drug therapy
CPT/HCPCS: 96372; 99283; J1885

== ENCOUNTER 2022-05-26 10:30 | Day surgery (SDC) | payer MEDICARE, BC ==
[2022-05-23 11:43] VITALS: BMI 29.2
[~2022-05-26 10:30] MED LIST: Magnevist 469MG/ML 20 ML VIAL ONE
[2022-05-26] MEDS ORDERED: fentaNYL PF 100 MCG/2 ML SYRINGE ONE (10:55)
[2022-05-26] MEDS ORDERED: Dexmedetomidine 200 MCG/2 ML VIAL ONE (10:56)
[2022-05-26] MEDS ORDERED: Famotidine/PF 20 mg/2ml Vial ONE (11:40)
[2022-05-26] MEDS ORDERED: Ondansetron PF 4 MG/2 ML Vial ONE (12:00)
[2022-05-26] MEDS ORDERED: PROPOFOL 200 MG/20 ML VIAL ONE (12:00)
== END 2022-05-26 14:02 | disposition home or self-care (01) ==
LOC: MRI 10:30
PROVIDERS: ATTEND Specialist
DX: M51.16 Intervertebral disc disorders with radiculopathy, lumbar region (principal); M47.26 Other spondylosis with radiculopathy, lumbar region; M48.061 Spinal stenosis, lumbar region without neurogenic claudication; M47.817 Spondylosis without myelopathy or radiculopathy, lumbosacral region; M51.27 Other intervertebral disc displacement, lumbosacral region; M48.07 Spinal stenosis, lumbosacral region; I48.21 Permanent atrial fibrillation; I11.0 Hypertensive heart disease with heart failure; I50.22 Chronic systolic (congestive) heart failure; J44.9 Chronic obstructive pulmonary disease, unspecified; K21.9 Gastro-esophageal reflux disease without esophagitis; G47.33 Obstructive sleep apnea (adult) (pediatric); E03.9 Hypothyroidism, unspecified; G43.709 Chronic migraine without aura, not intractable, without status migrainosus; N40.0 Benign prostatic hyperplasia without lower urinary tract symptoms; E78.5 Hyperlipidemia, unspecified; I48.3 Typical atrial flutter; I48.4 Atypical atrial flutter; I97.89 Other postprocedural complications and disorders of the circulatory system, not elsewhere classified; I44.2 Atrioventricular block, complete; Z87.891 Personal history of nicotine dependence; Z79.82 Long term (current) use of aspirin; Z79.890 Hormone replacement therapy; Z79.899 Other long term (current) drug therapy; Z88.0 Allergy status to penicillin; Z98.1 Arthrodesis status
CPT/HCPCS: 72158; 82565; S0028

== ENCOUNTER 2022-06-05 07:17 | Day surgery (SDC) | payer MEDICARE, BC ==
[2022-06-03 15:10] VITALS: BMI 28.1
[2022-06-05] MEDS ORDERED: Lorazepam 1 MG TAB ONE (07:32)
[2022-06-05 07:56] VITALS: BP 133/75; TEMP 97.5
[2022-06-05] MEDS ORDERED: Iopamidol-M 200 41% 20 ML VIAL ONE (15:07)
== END 2022-06-05 10:00 | disposition home or self-care (01) ==
LOC: RAD 07:17
PROVIDERS: ATTEND Neurological Surgery
PROC: B01B1ZZ Fluoroscopy of Spinal Cord using Low Osmolar Contrast (ICD-10-PCS; principal; 2022-06-05)
DX: M47.26 Other spondylosis with radiculopathy, lumbar region (principal); M51.16 Intervertebral disc disorders with radiculopathy, lumbar region; M48.061 Spinal stenosis, lumbar region without neurogenic claudication; M51.37 Other intervertebral disc degeneration, lumbosacral region; M48.07 Spinal stenosis, lumbosacral region; M47.814 Spondylosis without myelopathy or radiculopathy, thoracic region; I11.9 Hypertensive heart disease without heart failure; Z87.891 Personal history of nicotine dependence; Z79.82 Long term (current) use of aspirin; Z79.890 Hormone replacement therapy; Z79.899 Other long term (current) drug therapy; Z88.0 Allergy status to penicillin; Z95.0 Presence of cardiac pacemaker; Z95.1 Presence of aortocoronary bypass graft; Z98.1 Arthrodesis status
CPT/HCPCS: 62304; 72132; Q9966